=== PATIENT | male | born 1990 | race Caucasian/White ===

== ENCOUNTER → 2019-08-27 09:52 | Outpatient (CLI) | payer BC, SELFPAY ==
[2019-08-27 11:05] LABS: Liquefaction Semen YES (YES); Sperm Count 190 x10^6/mL (20-150); Sperm Morphology 66 %ABNORM (0-30); Sperm Motility 65% % Motile
== END ==
PROVIDERS: Family Provider Family Medicine; PCP Family Medicine; Referring Provider Specialist; Visit Provider Specialist
DX: Z31.69 Encounter for other general counseling and advice on procreation (principal)
CPT/HCPCS: 89320

== ENCOUNTER 2020-03-17 17:24 | Emergency (ER) | payer OTHER, SELFPAY ==
[2020-03-17 17:40] VITALS: PULSE 87; RESP 20; TEMP 37.2; O2SAT 96; BMI 31.1
--- NOTE | 2020-03-17 18:02 | DI.CT.S_ITS ---
PROCEDURE: CT ABDOMEN PELVIS W CON INDICATIONS: Colonoscopy yesterday Severe abdominal pain onset this morning. R/O perf after scope TECHNIQUE: After the administration of intravenous contrast, 5 mm thick sections acquired from the diaphragm to the symphysis. 5 mm coronal and sagittal reformats were acquired. For radiation dose reduction, the following was used: automated exposure control, adjustment of mA and/or kV according to patient size. COMPARISON: None. FINDINGS: Image quality: Excellent. ABDOMEN: Lung bases: Dependent atelectasis at lung bases. Heart size is normal. Solid organs: Hepatic steatosis. Liver is normal in size and enhancement. Gallbladder is normal. Biliary system is non dilated. Pancreas enhances normally. Spleen is normal in size and enhancement. No adrenal nodules. Kidneys demonstrate normal size and enhancement, without hydronephrosis. Peritoneum and bowel: There are surgical clips in the area of ascending colon. There is a small amount of pericolonic fluid in the area with mild stranding. No extraluminal gas collections. Bowel loops demonstrate normal wall thickness and caliber. There is mild concentric thickening in the splenic flexure and descending colon suggesting mild colitis. No free fluid or air. Nodes and vessels: No retroperitoneal or mesenteric adenopathy by size criteria. Aorta and inferior vena cava are normal in size. Miscellaneous: No ventral hernias. PELVIS: Genitourinary: Bladder wall thickness is normal. Miscellaneous: No inguinal adenopathy. Small fat containing left inguinal hernia is noted. Bones: No suspicious bony lesions. No vertebral body compression fractures. IMPRESSION: 1. Surgical clips in the area of the ascending colon with mild stranding and trace amount of free fluid. No extraluminal air. 2. Mild concentric thickening of the splenic flexure and descending colon suggesting mild colitis. No findings to suggest colonic perforation. Dictated by: Mir Scott M.D. on 03/17/2020 at 19:18 Approved by: Mir Scott M.D. on 03/17/2020 at 19:27
[2020-03-17 18:09] VITALS: PULSE 75; RESP 9; O2SAT 96
[2020-03-17 18:10] VITALS: BP 127/71; PULSE 74; RESP 13; RESP 14; O2SAT 96
[2020-03-17] MEDS: SODIUM CHLORIDE 0.9% 1,000 ML 150 ML IV (18:12)
[2020-03-17 18:15] LABS: Add Manual Diff / Slide Review NO; Basophils Absolute Auto 100 /uL (0-100); Basophils Percent Auto 0.5 % (0-2); Eosinophils Absolute Auto 0 /uL (0-450); Eosinophils Percent Auto 0.3 % (2-4); Hematocrit 49.3 % (41-53); Lymphocytes Absolute Auto 2300 /uL (1100-4500); Lymphocytes Percent Auto 16.1 % (25-40); Mean Corpuscular HGB Conc 34.5 % (30-36); Mean Corpuscular Hemoglobin 29.4 PG (26-34); Mean Corpuscular Volume 85.2 fL (80-100); Monocytes Absolute Auto 1100 /uL (0-900); Monocytes Percent Auto 7.6 % (3-14); Neutrophils Absolute Auto 10700 /uL (1500-7000); Neutrophils Percent Auto 75.5 % (50-75); Platelet Count 202 X10^3/uL (150-400); Red Blood Cell Count 5.78 X10^6/uL (4.5-5.9); Red Cell Distribution Width 13.1 % (11.6-14.8); White Blood Cell Count 14.2 X10^3/uL (4.5-11.0)
[2020-03-17 18:25] LABS: Lactate (Lactic Acid) 0.9 mmol/L (0.7-2.1)
[2020-03-17 18:26] LABS: Alanine Aminotransferase 48 IU/L (<50); Albumin 4.5 g/dL (3.5-5.0); Albumin Globulin Ratio 1.5 (1.0-2.8); Alkaline Phosphatase 43 U/L (38-126); Aspartate Aminotransferase 29 IU/L (17-59); BUN Creatinine Ratio 12.8 (6-22); Bilirubin Total 0.6 mg/dL (0.2-1.3); Blood Urea Nitrogen 11 mg/dL (9-20); Calcium 9.2 mg/dL (8.4-10.2); Carbon Dioxide 28 mmol/L (22-32); Chloride 101 mmol/L (98-107); Estimated Glomerular Filt Rate > 60.0 mL/min (>60); Globulin 3.1 g/dL (1.7-4.1); Glucose 91 mg/dL (70-100); HEMOLYSIS < 15 (0-50); Lipase 27 U/L (23-300); Potassium 3.6 mmol/L (3.4-5.1); Sodium 137 mmol/L (137-145); Total Protein 7.6 g/dL (6.3-8.2)
[2020-03-17 18:30] VITALS: BP 124/66; PULSE 74; RESP 13; O2SAT 98
--- NOTE | 2020-03-17 19:43 | ED.GENADULT ---
HPI - General Adult General Chief complaint: Abdominal Pain Stated complaint: colonscopy yesterday and feeling terrible Time Seen by Provider: 03/17/20 17:30 Source: patient Mode of arrival: Family Vehicle Limitations: no limitations History of Present Illness HPI narrative: Patient is a 30-year-old male. History of familial polyposis in his colon. Has had multiple colonoscopies in the past with polyp removal secondary to this. He had a colonoscopy yesterday. This was scheduled. He did have polyps removed. Comes the emergency department today for right-sided abdominal pain. No fevers. He states he has had a perforation in the past and that is what he was concerned about this time. Denies any urinary symptoms. No change in bowel habits. No blood in the stool. Related Data Home Medications Medication Instructions Recorded Confirmed ACETAMINOPHEN 0 mg PO PRN #0 03/22/11 loratadine-pseudoephedrine 1 tab PO QDAYP PRN #0 08/14/16 [Claritin-D 24 Hour] diphenhydramine HCl [Benadryl 25 mg PO Q6HP PRN #0 12/06/16 Allergy] ibuprofen 400 mg PO BID #0 12/06/16 Allergies Allergy/AdvReac Type Severity Reaction Status Date / Time Sulfa (Sulfonamide Allergy Severe RASH, Verified 03/17/20 17:44 Antibiotics) SWELLING [SULFA (SULFONAMIDE ANTIBIOTICS)] ENVIRONMENTAL Allergy Mild RHINITIS, Uncoded 03/17/20 17:44 EYE IRRITATION Review of Systems Constitutional Constitutional: Denies fever(s) Cardiovascular Cardiovascular: Denies chest pain and Denies dyspnea Respiratory Respiratory: Denies dyspnea Gastrointestinal Gastrointestinal: Reports abdominal pain, Denies change in bowel habits, Denies nausea and Denies vomiting Genitourinary Genitourinary: Denies hematuria and Denies dysuria Genitourinary: Denies hematuria and Denies dysuria Musculoskeletal Musculoskeletal: Denies arthralgias and Denies myalgias Integumentary/Breasts Skin/Breast: Denies rash Neurologic Neurologic: Denies behavioral changes Psychiatric Psychiatric: Denies behavioral changes Hematologic/Lymphatic Hematologic/Lymphatic: Denies easy bleeding and Denies easy bruising Patient History Medical History Colonic polyp Social History Smoking Status: Never smoker Smoking Status: Never smoker alcohol intake frequency: 0-2 drinks per day Substance Use Type: does not use Exam Initial Vital Signs Initial Vital Signs: Vital Signs Temperature 98.9 F 03/17/20 17:40 Pulse Rate 87 03/17/20 17:40 Respiratory Rate 20 03/17/20 17:40 Pulse Oximetry 96 03/17/20 17:40 Const General: cooperative, comfortable and well developed Limitations: mental status not altered HENMT Head: normal to inspection and normocephalic Resp Effort & Inspection: normal respiratory effort Cardio Rate: regular rate GI Inspection: non-distended Palpation: soft, No firm and tender (Right-sided abdomen without rebound or guarding) Skin Lesions: no lesions Rashes: no rashes Neuro General: patient alert and patient awake Cognition: normal cognition Speech: speech normal Extrem General: capillary refill normal Psych Appearance: grossly normal and well kempt Course Orders Ordered: ED Orders 03/17/20 18:02 CT abdomen pelvis w con Stat 03/17/20 18:05 Complete Blood Count AUTO DIFF Stat Comprehensive Metabolic Panel Stat Lactate (Lactic Acid) Stat Lipase Stat Discontinued Medications Sodium Chloride (Normal Saline 0.9%) 1,000 mls @ 150 mls/hr IV CONT TARUN Last Infusion: 03/17/20 19:51 Dose: 0 mls/hr Documented by: Admin: 03/17/20 18:12 Dose: 150 mls/hr Documented by: ROBERT Vital Signs Vital signs: Vital Signs - 8 hr 03/17/20 17:40 03/17/20 18:09 03/17/20 18:10 Temperature 98.9 F Pulse Rate 87 75 74 Respiratory Rate 20 9 L 14 Blood Pressure 127/71 Pulse Oximetry 96 96 96 03/17/20 18:30 03/17/20 19:58 Temperature 99.9 F H Pulse Rate 74 76 Respiratory Rate 13 16 Blood Pressure 124/66 125/76 Pulse Oximetry 98 97 Medical Decision Making Lab Data Lab results reviewed: Yes I reviewed the patient's lab results. Result diagrams: 03/17/20 18:05 03/17/20 18:05 Labs: Lab Results 03/17/20 03/17/20 03/17/20 Range/Units 18:05 18:05 18:05 WBC 14.2 H (4.5-11.0) X10^3/uL RBC 5.78 (4.5-5.9) X10^6/uL Hgb 17.0 (13.5-17.5) g/dL Hct 49.3 (41-53) % MCV 85.2 (80-100) fL MCH 29.4 (26-34) PG MCHC 34.5 (30-36) % RDW 13.1 (11.6-14.8) % Plt Count 202 (150-400) X10^3/uL Neut % (Auto) 75.5 H (50-75) % Lymph % (Auto) 16.1 L (25-40) % [place] % (Auto) 7.6 (3-14) % Eos % (Auto) 0.3 L (2-4) % Baso % (Auto) 0.5 (0-2) % Neut # (Auto) 07235 H (3435-3904) /uL Lymph # (Auto) 2300 (2668-6417) /uL [place] # (Auto) 1100 H (0-900) /uL Eos # (Auto) 0 (0-450) /uL Baso # (Auto) 100 (0-100) /uL Sodium 137 (137-145) mmol/L Potassium 3.6 (3.4-5.1) mmol/L Chloride 101 (98-107) mmol/L Carbon Dioxide 28 (22-32) mmol/L BUN 11 (9-20) mg/dL Creatinine 0.86 (0.66-1.25) mg/dL Estimated GFR > 60.0 (>60) mL/min BUN/Creatinine Ratio 12.8 (6-22) Glucose 91 (70-100) mg/dL Lactate 0.9 (0.7-2.1) mmol/L Calcium 9.2 (8.4-10.2) mg/dL Total Bilirubin 0.6 (0.2-1.3) mg/dL AST 29 (17-59) IU/L ALT 48 (<50) IU/L Alkaline Phosphatase 43 (38-126) U/L Total Protein 7.6 (6.3-8.2) g/dL Albumin 4.5 (3.5-5.0) g/dL Globulin 3.1 (1.7-4.1) g/dL Albumin/Globulin Ratio 1.5 (1.0-2.8) Lipase 27 (23-300) U/L Urine Dip Bedside Urine Glucose Negative Bedside Urine Bilirubin - Negative Bedside Urine Ketone - Negative Urine Specific [place] 1.010 Bedside Urine Occult Blood - Negative Bedside Urine pH 7.0 Bedside Urine Protein - Negative Bedside Urine Urobilinogen - Negative Bedside Urine Nitrite - Negative Bedside Urine Leukocytes - Negative Esterase Point of care testing: Urine Dip Bedside Urine Glucose Negative Bedside Urine Bilirubin - Negative Bedside Urine Ketone - Negative Urine Specific [place] 1.010 Bedside Urine Occult Blood - Negative Bedside Urine pH 7.0 Bedside Urine Protein - Negative Bedside Urine Urobilinogen - Negative Bedside Urine Nitrite - Negative Bedside Urine Leukocytes - Negative Esterase Imaging Data CT scan - abdomen/pelvis: Radiologist's Impression: [address] [id number] Scan ReportSigned Patient: Moe Russ#: [id number]: 1990Acct:[id number]/Sex: 30 / MDate of Service: 03/17/20Loc: EDAccession Number: [id number] Procedure: CT abdomen pelvis w con Ordering Provider: Jose Daniel Zheng D.O. PROCEDURE: CT ABDOMEN PELVIS W CON INDICATIONS: Colonoscopy yesterday Severe abdominal pain onset this morning. R/O perf after scope TECHNIQUE: After the administration of intravenous contrast, 5 mm thick sections acquired from the diaphragm to the symphysis. 5 mm coronal and sagittal reformats were acquired. For radiation dose reduction, the following was used: automated exposure control, adjustment of mA and/or kV according to patient size. COMPARISON: None. FINDINGS: Image quality: Excellent. ABDOMEN: Lung bases: Dependent atelectasis at lung bases. Heart size is normal. Solid organs: Hepatic steatosis. Liver is normal in size and enhancement. Gallbladder is normal. Biliary system is non dilated. Pancreas enhances normally. Spleen is normal in size and enhancement. No adrenal nodules. Kidneys demonstrate normal size and enhancement, without hydronephrosis. Peritoneum and bowel: There are surgical clips in the area of ascending colon. There is a small amount of pericolonic fluid in the area with mild stranding. No extraluminal gas collections. Bowel loops demonstrate normal wall thickness and caliber. There is mild concentric thickening in the splenic flexure and descending colon suggesting mild colitis. No free fluid or air. Nodes and vessels: No retroperitoneal or mesenteric adenopathy by size criteria. Aorta and inferior vena cava are normal in size. Miscellaneous: No ventral hernias. PELVIS: Genitourinary: Bladder wall thickness is normal. Miscellaneous: No inguinal adenopathy. Small fat containing left inguinal hernia is noted. Bones: No suspicious bony lesions. No vertebral body compression fractures. IMPRESSION: 1. Surgical clips in the area of the ascending colon with mild stranding and trace amount of free fluid. No extraluminal air. 2. Mild concentric thickening of the splenic flexure and descending colon suggesting mild colitis. No findings to suggest colonic perforation. Dictated by: Mir Scott M.D. on 03/17/2020 at 19:18 Approved by: Mir Scott M.D. on 03/17/2020 at 19:27 [facility] Narrative Medical decision making narrative: Patient does have a leukocytosis however he did just have a procedure yesterday and this could very well be demargination. His CT scan shows no signs of a perforation or free air. He does have colitis on the CT scan which is most likely from the procedure yesterday as well. We will hold on antibiotics for now. He has a benign abdominal exam. He was given return precautions and follow-up instructions. He expressed understanding and agreement. Discharge Plan Departure Patient Disposition: Home Clinical Impression: Abdominal pain Instructions: DI for Abdominal Pain-Adult Activity Restrictions/Additional Instructions: Your labs and CT scan today shows no signs of perforation. Continue all of your postprocedure instructions given to you by your GI provider. Return to the emergency department for any new or worsening symptoms Prescriptions: No Action ACETAMINOPHEN 0 mg PO PRN Qty: 0 RF: 0 loratadine-pseudoephedrine [Claritin-D 24 Hour] 10 MG/240 MG tablet extended release 24 hr 1 tab PO QDAYP PRNQty: 0 RF: 0 diphenhydramine HCl [Benadryl Allergy] 25 MG tablet 25 mg PO Q6HP PRNQty: 0 RF: 0 ibuprofen 400 MG tablet 400 mg PO BID Qty: 0 RF: 0 Referrals: John Price MD [Primary Care Provider] -
[2020-03-17 19:58] VITALS: BP 125/76; PULSE 76; RESP 16; TEMP 37.7; O2SAT 97
== END 2020-03-17 19:59 | disposition home or self-care (01) ==
PROVIDERS: Emergency Medicine; Emergency Provider Emergency Medicine; Family Provider Family Medicine; PCP Family Medicine
DX: R10.9 Unspecified abdominal pain (principal); D72.829 Elevated white blood cell count, unspecified; Z86.010 Personal history of colon polyps
CPT/HCPCS: 36415; 74177; 80053; 81003; 83605; 83690; 85025; 96360; 96361; 99283; 99284; Q9967

== ENCOUNTER → 2023-02-04 09:14 | Outpatient (CLI) | payer OTHER, SELFPAY ==
--- NOTE | 2023-02-04 09:19 | DI.RAD.S_ITS ---
PROCEDURE: XR CERVICAL SPINE 2V OR 3V INDICATIONS: NECK PAIN TECHNIQUE: 3 view(s) of the cervical spine were acquired. COMPARISON: None. FINDINGS: Bones: No fractures or dislocations to the C7 level. The lateral masses of C1 appear intact on the odontoid view. Undulation at C6 vertebral body. No suspicious bony lesions. Soft tissues: No prevertebral soft tissue swelling. IMPRESSION: Subtle undulation at the C6 vertebral body. This could represent minimal height loss. If clinically indicated this could be further evaluated with MRI or CT. Recommend clinical correlation this younger patient. Dictated by: Robb Milner M.D. on 02/04/2023 at 11:54 Approved by: Robb Milner M.D. on 02/04/2023 at 11:56
--- NOTE | 2023-02-04 09:19 | DI.RAD.S_ITS ---
PROCEDURE: XR THORACIC SPINE 3V INDICATIONS: BACK PAIN TECHNIQUE: 3 views of the thoracic spine were acquired. COMPARISON: None. FINDINGS: Bones: No fractures or dislocations. No suspicious bony lesions. 12 pairs of ribs are noted, and appear intact where visualized. Soft tissues: No paravertebral stripe thickening. IMPRESSION: No acute bony abnormality identified. No acute cardiopulmonary abnormality. Dictated by: Robb Milner M.D. on 02/04/2023 at 11:56 Approved by: Robb Milner M.D. on 02/04/2023 at 11:58
== END ==
PROVIDERS: Family Provider Family Medicine; PCP Family Medicine; Referring Provider Chiropractor; Visit Provider Chiropractor
DX: M54.2 Cervicalgia (principal); M54.6 Pain in thoracic spine
CPT/HCPCS: 72040; 72072